=== PATIENT | male | born 1950 | race African-American/Black ===

== ENCOUNTER 2020-10-11 13:01 | Inpatient (IN) | payer MEDICARE, MEDICAID ==
[~2020-10-11] VITALS: Ht 190.5 cm; Wt 93.4 kg
[2020-10-11] MEDS ORDERED: SODIUM CHLORIDE 0.9% 1,000 ML IV ONE (13:15)
[2020-10-11 13:50] LABS: CHLORIDE 113 mEq/L (98-107)
[2020-10-11 14:29] LABS: HEMATOCRIT. 31.3 % (42.0-52.0); HEMOGLOBIN. 10.3 g/dL (14.0-18.0); MEAN CORPUSCULAR HEMOGLOBIN 28.3 pg (28.0-32.0); MEAN CORPUSCULAR VOLUME 86.6 fL (80.0-94.0); MEAN PLATELET VOLUME 9.5 fl (7.4-10.4); PLATELET 218 x1000/uL (130-400); RED BLOOD CELL COUNT 3.62 mill/uL (4.7-6.1); RED CELL DISTRIBUTION WIDTH 17.3 % (11.6-14.6)
[2020-10-11 15:25] LABS: PLATELET ESTIMATE NORMAL
[2020-10-11] MEDS ORDERED: DEXTROSE 50% WATER 50ML SYRINGE IV ONE ×3 (15:45→23:15)
[2020-10-11] MEDS ORDERED: ALBUTEROL (0.083%) 2.5MG/3ML NEB HHN ONE (15:45)
[2020-10-11] MEDS ORDERED: SODIUM BICARBONATE 8.4% 1 MEQ/ML 50ML SYR IV ONE (15:45)
[2020-10-11] MEDS ORDERED: SODIUM POLYSTYRENE SULFONATE 15 G/60 ML BOT PO ONE (15:45)
[2020-10-11 16:45] LABS: CLARITY URINE CLOUDY (CLEAR); COLOR URINE YELLOW (YELLOW); KETONES URINE NEGATIVE (NEGATIVE); LEUKOCYTE ESTERASE URINE 3+ (NEGATIVE); NITRITE URINE NEGATIVE (NEGATIVE); OCCULT BLOOD URINE 1+ (NEGATIVE); PH URINE 5.5 (4.5-8.0); PROTEIN URINE 2+ (NEGATIVE); SPECIFIC GRAVITY URINE 1.012 (1.005-1.030); UROBILINOGEN URINE 0.2 E.U./dL (0.2-1.0)
[2020-10-11] MEDS ORDERED: DEXTROSE 10% WATER 250 ML IV ONE (17:45)
[2020-10-11] MEDS ORDERED: CEFTRIAXONE 1 G PREMIX 50 ML IV ONE (18:30)
[2020-10-11] MEDS: DEXT 10% WATER 1,000 ML IV SCH (20:30)
[2020-10-11] MEDS ORDERED: DEXT 10%/0.45% NACL 1,000 ML IV SCH (20:30)
[2020-10-12] MEDS: DEXT 10% WATER 1,000 ML IV SCH (09:25)
[2020-10-12] MEDS ORDERED: CEFTRIAXONE 1 G PREMIX 50 ML IV NR (18:30)
[2020-10-12 19:53] LABS: CHLORIDE 111 mEq/L (98-107)
[2020-10-12] MEDS ORDERED: ACETAMINOPHEN 325MG TABLET PO PRN (22:15)
[2020-10-12] MEDS ORDERED: SODIUM POLYSTYRENE SULFONATE 15 G/60 ML BOT PO NR (22:15)
[2020-10-12] MEDS ORDERED: ONDANSETRON HCL 4MG/2ML INJ IV PRN (22:15)
[2020-10-13] VITALS (7 sets, daily range): BP systolic 147–181; BP diastolic 65–86
[2020-10-13] MEDS: AMLODIPINE 10MG TABLET PO SCH ×2 (00:22→09:54)
[2020-10-13] MEDS: DEXT 5%/0.45% NACL 1000ML 1,000 ML IV SCH (00:23)
[2020-10-13] MEDS ORDERED: DEXTROSE 50% WATER 50ML SYRINGE IV PRN (04:00)
[2020-10-13] MEDS: BLOOD SUGAR DIAGNOSTIC STRIP TEST SCH ×4 (06:25→21:16)
[2020-10-13 06:39] LABS: BASOPHILS % 0.8 % (0.0-2.0); EOSINOPHILS % 2.4 % (0.0-5.0); HEMATOCRIT. 32.1 % (42.0-52.0); HEMOGLOBIN. 10.4 g/dL (14.0-18.0); LYMPHOCYTES % 22.3 % (20.0-50.0); MEAN CORPUSCULAR HEMOGLOBIN 28.4 pg (28.0-32.0); MEAN CORPUSCULAR VOLUME 87.6 fL (80.0-94.0); NEUTROPHILS % 64.5 % (40.0-76.0); PLATELET 201 x1000/uL (130-400); RED BLOOD CELL COUNT 3.67 mill/uL (4.7-6.1); RED CELL DISTRIBUTION WIDTH 16.8 % (11.6-14.6)
[2020-10-13] MEDS ORDERED: BLOOD SUGAR DIAGNOSTIC STRIP TEST SCH (07:10)
[2020-10-13] MEDS ORDERED: CEFTRIAXONE 1 G PREMIX 50 ML IV SCH (09:00)
[2020-10-13] MEDS: CEFTRIAXONE 1,000 MG in DEXTROSE 5% WATER 50 ML IV SCH (09:54)
[2020-10-13] MEDS ORDERED: CLONIDINE 0.1MG TABLET PO PRN (23:30)
[2020-10-14] VITALS (9 sets, daily range): BP systolic 133–159; BP diastolic 65–84
[2020-10-14] MEDS: DEXT 5%/0.45% NACL 1000ML 1,000 ML IV SCH ×2 (01:32→09:44)
[2020-10-14] MEDS: BLOOD SUGAR DIAGNOSTIC STRIP TEST SCH ×3 (06:11→21:35)
[2020-10-14 07:35] LABS: BASOPHILS % 1.1 % (0.0-2.0); EOSINOPHILS % 4.6 % (0.0-5.0); HEMATOCRIT. 29.9 % (42.0-52.0); LYMPHOCYTES % 29.9 % (20.0-50.0); MEAN CORPUSCULAR HEMOGLOBIN 28.4 pg (28.0-32.0); MEAN CORPUSCULAR VOLUME 85.2 fL (80.0-94.0); MEAN PLATELET VOLUME 8.3 fl (7.4-10.4); MONOCYTES % 11.4 % (2.0-8.0); PLATELET 185 x1000/uL (130-400); RED BLOOD CELL COUNT 3.51 mill/uL (4.7-6.1); RED CELL DISTRIBUTION WIDTH 16.6 % (11.6-14.6)
[2020-10-14] MEDS: CEFTRIAXONE 1,000 MG in DEXTROSE 5% WATER 50 ML IV SCH (09:23)
[2020-10-14] MEDS: AMLODIPINE 10MG TABLET PO SCH (09:24)
[2020-10-14] MEDS: ENOXAPARIN 30MG/0.3ML SYR SUBCUT SCH (09:24)
[2020-10-14] MEDS: TAMSULOSIN HCL 0.4MG SR CAPSULE PO SCH (09:24)
[2020-10-14] MEDS: LISINOPRIL 20MG TABLET PO SCH (09:24)
[2020-10-14] MEDS ORDERED: LEVO500T89 MT (12:25)
[2020-10-14] MEDS ORDERED: LOSA100T32 MT (12:26)
[2020-10-14] MEDS ORDERED: AMLO10TA80 PO (12:26)
[2020-10-14] MEDS ORDERED: LEVO250T58 MT (13:05)
[2020-10-15] VITALS: BP 115/53
[2020-10-15 02:00] VITALS: BP 121/62
[2020-10-15 04:00] VITALS: BP 123/54
[2020-10-15 06:00] VITALS: BP 121/68
[2020-10-15] MEDS: BLOOD SUGAR DIAGNOSTIC STRIP TEST SCH (06:13)
[2020-10-15 08:00] VITALS: BP 131/79
[2020-10-15] MEDS: CEFTRIAXONE 1,000 MG in DEXTROSE 5% WATER 50 ML IV SCH (10:03)
[2020-10-15] MEDS: LISINOPRIL 20MG TABLET PO SCH (10:03)
[2020-10-15] MEDS: AMLODIPINE 10MG TABLET PO SCH (10:04)
[2020-10-15] MEDS: TAMSULOSIN HCL 0.4MG SR CAPSULE PO SCH (10:04)
[2020-10-15] MEDS: ENOXAPARIN 30MG/0.3ML SYR SUBCUT SCH (10:05)
[2020-10-15 11:37] VITALS: BP 130/61
== END 2020-10-15 12:10 | disposition home health service (06) | DRG 637 ==
LOC: ER 13:01 → MICUSO 18:37 → EDBEDREQSVC 10-12 05:24 → EDBEDREQTM 10-12 05:24 → EDBEDREQDT 10-12 05:24 → 8WST 10-12 22:17
PROVIDERS: ADMIT Internal Medicine; ATTEND Internal Medicine
DX: E11.649 Type 2 diabetes mellitus with hypoglycemia without coma (principal); G93.41 Metabolic encephalopathy; N39.0 Urinary tract infection, site not specified; N17.0 Acute kidney failure with tubular necrosis; E87.5 Hyperkalemia; E87.8 Other disorders of electrolyte and fluid balance, not elsewhere classified; D64.9 Anemia, unspecified; I10 Essential (primary) hypertension; Z20.822 Contact with and (suspected) exposure to COVID-19; Z60.2 Problems related to living alone
CPT/HCPCS: 36415; 71045; 80048; 80053; 81003; 82140; 82962; 83036; 83880; 84484; 85025; 87077; 87186; 87426; 93005; 94640; 97116; 97162; 97166; 97530; 99291; C1893; J0696; J1650; J3490; J7030; J7060